=== PATIENT | female | born 1995 | race Caucasian/White ===

== ENCOUNTER → 2020-04-19 | Outpatient (REF) | payer OTHER ==
[2020-04-19 13:17] LABS: HEMATOCRIT 41.7 % (36.0-47.0); HEMOGLOBIN 13.6 g/dl (12.0-15.5); MEAN CORPUSCULAR HEMOGLOBIN 30.5 pg (27.0-33.0); MEAN CORPUSCULAR HGB CONC 32.6 g/dl (32.0-36.5); MEAN CORPUSCULAR VOLUME 93.5 fl (80.0-96.0); PLATELET COUNT, AUTOMATED 238 10^3/uL (150-450); RED BLOOD COUNT 4.46 10^6/uL (4.00-5.40); WHITE BLOOD COUNT 7.1 10^3/uL (4.0-10.0)
[2020-04-19 13:53] LABS: ALBUMIN 4.1 GM/DL (3.2-5.2); ALT/SGPT 24 U/L (12-78); BILIRUBIN,TOTAL 0.3 MG/DL (0.2-1.0); BLOOD UREA NITROGEN 9 MG/DL (7-18); CALCIUM LEVEL 8.9 MG/DL (8.5-10.1); CARBON DIOXIDE LEVEL 26 MEQ/L (21-32); CHLORIDE LEVEL 105 MEQ/L (98-107); CREATININE FOR GFR 0.64 MG/DL (0.55-1.30); FREE T4 0.98 NG/DL (0.76-1.46); GLOMERULAR FILTRATION RATE > 60.0 (>60); GLUCOSE, FASTING 91 MG/DL (70-100); POTASSIUM SERUM 4.4 MEQ/L (3.5-5.1); SODIUM LEVEL 142 MEQ/L (136-145); TOTAL PROTEIN 6.7 GM/DL (6.4-8.2)
[2020-04-19 13:54] LABS: TOTAL 25(OH) VITAMIN D 16.1 NG/ML (30.0-100.0)
== END ==
LOC: M SFHCADAM 11:14
PROVIDERS: ATTEND Physician Assistant Medical
DX: F42.9 Obsessive-compulsive disorder, unspecified (principal); E04.1 Nontoxic single thyroid nodule

== ENCOUNTER → 2020-05-02 | Outpatient (CLI) | payer OTHER ==
--- NOTE | 2020-05-03 03:48 | REP ---
INDICATION: THYROID NODULE COMPARISON: None. TECHNIQUE: Villalba scale and color evaluation of the thyroid gland using the linear high frequency transducer. FINDINGS: The right thyroid lobe measures 5.0 x 1.5 x 2.0 cm and includes a complex cystic lesion measuring 2.5 x 1.4 x 2.0 cm with large central solid component. Left lobe measures 3.2 x 1.2 x 0.8 cm without abnormality. Isthmus measures 1.8 mm in width. IMPRESSION: 2.5 cm complex lesion in the right thyroid lobe. TI-RADS category 2 lesion indeterminate and likely benign. Consider interval follow-up examination. <Electronically signed by London Lopez > 05/03/20 [id number]
== END ==
LOC: M RAD 13:28
PROVIDERS: ATTEND Physician Assistant
DX: E04.1 Nontoxic single thyroid nodule (principal)

== ENCOUNTER → 2020-07-25 | Outpatient (CLI) | payer OTHER ==
[~2020-07-25] MED LIST: LIDOCAINE 1% MDV 20ML VIAL As Ordered ONE; ZOLO100T PO
[2020-07-25 14:10] VITALS: BP 115/63
--- NOTE | 2020-07-25 17:22 | REP ---
INDICATION: RIGHT THYROID NODULE. COMPARISON: None. TECHNIQUE: The procedure was performed under the direct supervision of Dr. Villalba. The patient has a history of a 2.5 cm complex lesion in the right thyroid seen on a previous ultrasound dated 05/02/2020. The risks and benefits of the procedure were explained to the patient and informed consent was obtained. The right thyroid nodule was localized using ultrasound guidance. The skin was prepped and draped in a sterile fashion. 1% lidocaine was used as a local anesthetic. Using ultrasound guidance 4 fine-needle aspirations were obtained using 25 gauge needles. 2 cc of low viscosity red colored fluid was withdrawn. All samples were sent to the lab for analysis. The patient tolerated the procedure well and there were no immediate complications. After the appropriate amount to monitor convalescence the patient was discharged from the department. FINDINGS: None IMPRESSION: Ultrasound-guided right thyroid biopsy. <Electronically signed by Mook Ramsey > 07/25/20 [id number] <Electronically signed by Cuauhtemoc Villalba > 07/25/20 [id number]
== END ==
LOC: M IRPRO 12:58
PROVIDERS: ATTEND Otolaryngology
DX: D34 Benign neoplasm of thyroid gland (principal)

== ENCOUNTER 2020-08-11 16:14 | Emergency (ER) | payer OTHER ==
[~2020-08-11] VITALS: Ht 167.6 cm; Wt 60.9 kg
[~2020-08-11 16:14] MED LIST changes: -LIDOCAINE 1% MDV 20ML VIAL As Ordered ONE
--- NOTE | 2020-08-11 17:32 | REP ---
INDICATION: trauma to nose. COMPARISON: None. TECHNIQUE: Three views. AP and lateral projection. FINDINGS: The nasal bone and inferior maxillary spine are intact. Bony orbital margins appear intact. Paranasal sinuses appear clear. No fracture is seen. IMPRESSION: Negative nasal series. No fracture noted. <Electronically signed by John Whiting > 08/11/20 [id number]
[2020-08-11 17:53] VITALS: BP 108/64
== END 2020-08-11 17:53 | disposition home or self-care (01) ==
LOC: M ED 16:14
DX: S00.33XA Contusion of nose, initial encounter (principal); W50.1XXA Accidental kick by another person, initial encounter; Y92.019 Unspecified place in single-family (private) house as the place of occurrence of the external cause; Y93.9 Activity, unspecified; Y99.9 Unspecified external cause status; M54.5 Low back pain; F41.9 Anxiety disorder, unspecified; F33.1 Major depressive disorder, recurrent, moderate; Z88.2 Allergy status to sulfonamides; Z79.899 Other long term (current) drug therapy

== ENCOUNTER 2020-09-14 16:43 | Emergency (ER) | payer OTHER ==
[~2020-09-14] VITALS: Ht 170.2 cm; Wt 61.5 kg
[2020-09-14] MEDS ORDERED: PREN200C PO (16:50)
[2020-09-14] MEDS ORDERED: ZOFR4TAB16 PO (16:50)
[2020-09-14 17:48] LABS: BASO % 0.5 % (0.0-1.0); EOS % 0.3 % (0.0-3.0); HEMATOCRIT 38.8 % (36.0-47.0); LYMPH # 1.4 10^3/uL (1.5-5.0); LYMPH % 16.5 % (24.0-44.0); MEAN CORPUSCULAR HEMOGLOBIN 30.7 pg (27.0-33.0); MEAN CORPUSCULAR HGB CONC 33.5 g/dl (32.0-36.5); MEAN CORPUSCULAR VOLUME 91.5 fl (80.0-96.0); MONO # 0.5 10^3/uL (0.0-0.8); NEUTROPHILS # 6.6 10^3/uL (1.5-8.5); NEUTROPHILS % 76.4 % (36.0-66.0); PLATELET COUNT, AUTOMATED 250 10^3/uL (150-450); RED BLOOD COUNT 4.24 10^6/uL (4.00-5.40); WHITE BLOOD COUNT 8.6 10^3/uL (4.0-10.0)
[2020-09-14 18:47] LABS: ALBUMIN 3.8 GM/DL (3.2-5.2); ALT/SGPT 18 U/L (12-78); BILIRUBIN,DIRECT < 0.1 MG/DL (0.0-0.2); BILIRUBIN,TOTAL 0.2 MG/DL (0.2-1.0); BLOOD UREA NITROGEN 8 MG/DL (7-18); CALCIUM LEVEL 8.7 MG/DL (8.5-10.1); CARBON DIOXIDE LEVEL 26 MEQ/L (21-32); CHLORIDE LEVEL 108 MEQ/L (98-107); CREATININE FOR GFR 0.48 MG/DL (0.55-1.30); GLOMERULAR FILTRATION RATE > 60.0 (>60); GLUCOSE, FASTING 104 MG/DL (70-100); HCG, SERUM QUANTITATIVE 54843 MIU/ML; LIPASE 110 U/L (73-393); POTASSIUM SERUM 4.2 MEQ/L (3.5-5.1); SODIUM LEVEL 139 MEQ/L (136-145); TOTAL PROTEIN 6.4 GM/DL (6.4-8.2)
[2020-09-14] MEDS ORDERED: ONDANSETRON 4 MG ORAL DISINTEGRATING TAB PO ONE (18:55)
[2020-09-14 20:49] VITALS: BP 105/62
== END 2020-09-14 20:52 | disposition home or self-care (01) ==
LOC: M ED 16:43
DX: O21.9 Vomiting of pregnancy, unspecified (principal); O26.891 Other specified pregnancy related conditions, first trimester; Z3A.09 9 weeks gestation of pregnancy; Z79.899 Other long term (current) drug therapy; Z88.2 Allergy status to sulfonamides
CPT/HCPCS: 80048; 80076; 81001; 83690; 84702; 85025; 86901; 99284; Q0162

== ENCOUNTER → 2020-10-01 | Outpatient (REF) | payer OTHER ==
[~2020-10-01] MED LIST changes: +PREN200C PO; +ZOFR4TAB16 PO
[2020-10-01 17:48] LABS: HEMATOCRIT 39.5 % (36.0-47.0); HEMOGLOBIN 13.2 g/dl (12.0-15.5); MEAN CORPUSCULAR HEMOGLOBIN 30.5 pg (27.0-33.0); MEAN CORPUSCULAR HGB CONC 33.4 g/dl (32.0-36.5); MEAN CORPUSCULAR VOLUME 91.2 fl (80.0-96.0); PLATELET COUNT, AUTOMATED 233 10^3/uL (150-450); RED BLOOD COUNT 4.33 10^6/uL (4.00-5.40); WHITE BLOOD COUNT 8.2 10^3/uL (4.0-10.0)
[2020-10-01 18:14] LABS: HCG, SERUM QUANTITATIVE 70421 MIU/ML; HEPATITIS B SURFACE ANTIGEN NEGATIVE (NEGATIVE); HIV 1&2 SCREEN CENTAUR NEGATIVE (NEGATIVE)
== END ==
LOC: M LAB REF 16:22
PROVIDERS: ATTEND Obstetrics & Gynecology
DX: O36.80X0 Pregnancy with inconclusive fetal viability, not applicable or unspecified (principal)

== ENCOUNTER → 2021-02-11 | Outpatient (CLI) | payer BC ==
[2021-02-11 10:14] LABS: HEMATOCRIT 34.2 % (36.0-47.0); HEMOGLOBIN 11.2 g/dl (12.0-15.5); MEAN CORPUSCULAR HEMOGLOBIN 30.5 pg (27.0-33.0); MEAN CORPUSCULAR HGB CONC 32.7 g/dl (32.0-36.5); MEAN CORPUSCULAR VOLUME 93.2 fl (80.0-96.0); PLATELET COUNT, AUTOMATED 212 10^3/uL (150-450); RED BLOOD COUNT 3.67 10^6/uL (4.00-5.40); WHITE BLOOD COUNT 9.5 10^3/uL (4.0-10.0)
== END ==
LOC: M RAD 08:54
PROVIDERS: ATTEND Otolaryngology
DX: Z34.82 Encounter for supervision of other normal pregnancy, second trimester (principal); E04.9 Nontoxic goiter, unspecified

== ENCOUNTER → 2021-06-20 | Outpatient (CLI) | payer BC | LOC: M RAD 16:08 | PROVIDERS: ATTEND Otolaryngology | DX: E04.1 Nontoxic single thyroid nodule (principal) ==

== ENCOUNTER → 2021-08-04 | Outpatient (CLI) | payer BC ==
[~2021-08-04] MED LIST changes: +LIDOCAINE 1% MDV 20ML VIAL As Ordered ONE
[2021-08-04 08:49] VITALS: BP 98/108
== END ==
LOC: M IRPRO 07:55
PROVIDERS: ATTEND Otolaryngology
DX: E04.9 Nontoxic goiter, unspecified (principal)

== ENCOUNTER → 2021-09-28 | Outpatient (CLI) | payer BC ==
[~2021-09-28] MED LIST changes: -LIDOCAINE 1% MDV 20ML VIAL As Ordered ONE
== END ==
LOC: M LABSMTC 11:25
PROVIDERS: ATTEND Anesthesiology
DX: Z01.818 Encounter for other preprocedural examination (principal)

== ENCOUNTER 2021-10-02 08:39 | Day surgery (SDC) | payer BC ==
[~2021-10-02] VITALS: Ht 170.2 cm; Wt 70.2 kg
[2021-10-02 09:06] LABS: HEMATOCRIT 40.6 % (36.0-47.0); HEMOGLOBIN 13.7 g/dl (12.0-15.5); MEAN CORPUSCULAR HEMOGLOBIN 30.9 pg (27.0-33.0); MEAN CORPUSCULAR HGB CONC 33.7 g/dl (32.0-36.5); MEAN CORPUSCULAR VOLUME 91.6 fl (80.0-96.0); PLATELET COUNT, AUTOMATED 233 10^3/uL (150-450); RED BLOOD COUNT 4.43 10^6/uL (4.00-5.40); WHITE BLOOD COUNT 7.1 10^3/uL (4.0-10.0)
[2021-10-02] MEDS ORDERED: LR 1,000 ML IV SCH ×4 (09:10→16:45)
[2021-10-02 09:21] LABS: BLOOD UREA NITROGEN 9 MG/DL (7-18); CALCIUM LEVEL 9.3 MG/DL (8.5-10.1); CARBON DIOXIDE LEVEL 25 MEQ/L (21-32); CHLORIDE LEVEL 112 MEQ/L (98-107); CREATININE FOR GFR 0.69 MG/DL (0.55-1.30); GLOMERULAR FILTRATION RATE > 60.0 (>60); GLUCOSE, FASTING 88 MG/DL (70-100); SODIUM LEVEL 144 MEQ/L (136-145)
[2021-10-02] MEDS ORDERED: SCOPOLAMINE 1MG TRANSDERMAL PATCH TOP ONE (11:00)
[2021-10-02] MEDS ORDERED: LIDOCAINE W/EPINEPHRINE 1% 20ML VIAL As Ordered ONE (12:00)
[2021-10-02] MEDS ORDERED: dexameTHASONE 4 MG/ML 1ML VIAL (J1100 PER 1MG) As Ordered ONE ×2 (12:34→13:11)
[2021-10-02] MEDS ORDERED: MIDAZOLAM INJ 2MG/2ML VIAL (J2250 PER 1MG) As Ordered ONE (13:10)
[2021-10-02] MEDS ORDERED: fentaNYL 250 MCG/5 ML INJECTION As Ordered ONE (13:10)
[2021-10-02] MEDS ORDERED: ROCURONIUM BROMIDE 50 MG/5 ML VIAL As Ordered ONE (13:11)
[2021-10-02] MEDS ORDERED: ONDANSETRON 4MG 2ML VIAL As Ordered ONE (13:11)
[2021-10-02] MEDS ORDERED: propofoL 200 MG/20 ML VIAL As Ordered ONE (13:11)
[2021-10-02] MEDS ORDERED: SUGAMMADEX SODIUM 500 MG/5 ML VIAL (BRIDION) As Ordered ONE (13:12)
[2021-10-02] MEDS ORDERED: ACETAMINOPHEN 1000MG 100ML IV BTL (OFIRMEV) (J0131 PER 10MG) As Ordered ONE (13:13)
[2021-10-02] MEDS ORDERED: HYDROmorphone HCL 2MG/ML 1ML VIAL As Ordered ONE (13:15)
[2021-10-02] MEDS ORDERED: EPINEPHrine 1MG/ML INJ 30ML MD-VIAL As Ordered ONE (14:46)
[2021-10-02] MEDS ORDERED: METHYLENE BLUE 0.5% (5MG/ML) 10 ML AMP (PROVAYBLUE) As Ordered ONE (14:46)
[2021-10-02] MEDS ORDERED: ONDANSETRON 4MG 2ML VIAL IV PRN (15:40)
[2021-10-02] MEDS ORDERED: METOCLOPRAMIDE INJ 10MG/2ML VIAL (J2765 PER 1) IV PRN (15:40)
[2021-10-02] MEDS ORDERED: HYDROMORPHONE HCL 0.5 MG/ 0.5 ML SYRINGE (J1170 PER 1) IV PRN (15:40)
[2021-10-02] MEDS ORDERED: fentaNYL 100 MCG/2 ML INJECTION IV PRN (15:40)
[2021-10-02] MEDS ORDERED: oxyCODONE 5MG TAB PO PRN (15:40)
[2021-10-02 17:32] VITALS: BP 110/57
== END 2021-10-02 17:39 | disposition home or self-care (01) ==
LOC: M SDC 08:39
PROVIDERS: ATTEND Otolaryngology
DX: E04.1 Nontoxic single thyroid nodule (principal); Z88.2 Allergy status to sulfonamides
CPT/HCPCS: 36415; 60220; 80048; 81025; 85027; 88307; J0131; J0171; J1100; J1170; J2250; J2405; J3010; Q9968